=== PATIENT | female | born 1990 | race American Indian/Alaskan Native ===

== ENCOUNTER 2020-05-18 09:32 | Emergency (ER) | payer SELFPAY ==
[2020-05-18 10:27] VITALS: BP 139/90
[2020-05-18] MEDS ORDERED: IBUPROFEN 800 MG TAB PO ONE (10:44)
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
== END 2020-05-18 12:48 | disposition home or self-care (01) ==
LOC: ED 09:32
DX: S86.911A Strain of unspecified muscle(s) and tendon(s) at lower leg level, right leg, initial encounter (principal); S13.4XXA Sprain of ligaments of cervical spine, initial encounter; S00.03XA Contusion of scalp, initial encounter; Z79.899 Other long term (current) drug therapy; Z98.890 Other specified postprocedural states; V49.49XA Driver injured in collision with other motor vehicles in traffic accident, initial encounter; Y92.410 Unspecified street and highway as the place of occurrence of the external cause; Y93.89 Activity, other specified; Y99.8 Other external cause status
CPT/HCPCS: 70450; 72125